=== PATIENT | male | born 1990 | race Caucasian/White ===

== ENCOUNTER 2018-11-10 19:11 | Emergency (ER) | payer OTHER ==
[~2018-11-10] VITALS: Ht 182.9 cm; Wt 115.0 kg
[~2018-11-10 19:11] MED LIST: IBUP-1984 PO
[2018-11-10] MEDS ORDERED: acetaminophen 325mg tablet PO ONE (20:10)
[2018-11-10] MEDS ORDERED: naproxen 500mg tablet PO ONE (20:10)
[2018-11-10 21:47] VITALS: BP 152/98
== END 2018-11-10 21:03 | disposition home or self-care (01) ==
LOC: ER 19:12
DX: S63.282A Dislocation of proximal interphalangeal joint of right middle finger, initial encounter (principal); F12.90 Cannabis use, unspecified, uncomplicated; Z79.899 Other long term (current) drug therapy; W50.2XXA Accidental twist by another person, initial encounter; Y93.89 Activity, other specified; Y92.828 Other wilderness area as the place of occurrence of the external cause; Y99.8 Other external cause status
CPT/HCPCS: 26770; 73140; 99284

== ENCOUNTER → 2021-04-12 | Emergency (ER) | payer OTHER ==
[~2021-04-12] VITALS: Ht 182.9 cm; Wt 111.4 kg
[~2021-04-12] MED LIST changes: +ciprofloxacin 0.3% 2.5ml ophthalmic solution LEFTEYE ONE; +proparacaine 0.5% ophthalmic drops 15ml EACHEYE ONE
[2021-04-12 13:52] VITALS: BP 151/97
== END | disposition home or self-care (01) ==
LOC: ER 13:29
DX: T15.02XA Foreign body in cornea, left eye, initial encounter (principal); F12.90 Cannabis use, unspecified, uncomplicated; X58.XXXA Exposure to other specified factors, initial encounter; Y93.89 Activity, other specified; Y92.89 Other specified places as the place of occurrence of the external cause; Y99.8 Other external cause status
CPT/HCPCS: 65222; 99284